=== PATIENT | female | born 1960 | race Two or more races ===

== ENCOUNTER 2017-12-02 01:06 | Emergency (ER) | payer OTHER ==
[~2017-12-02] VITALS: Ht 162.6 cm; Wt 59.0 kg
== END 2017-12-02 12:49 | disposition home or self-care (01) ==
LOC: ER → CPU-OBS 02:31 → ER 02:31
DX: R07.89 Other chest pain (principal); R00.2 Palpitations; F06.4 Anxiety disorder due to known physiological condition; F12.980 Cannabis use, unspecified with anxiety disorder; T40.7X5A Adverse effect of cannabis (derivatives), initial encounter; Y92.89 Other specified places as the place of occurrence of the external cause
CPT/HCPCS: 93005; G0378; G0379

== ENCOUNTER 2022-10-28 06:30 | Day surgery (SDC) | payer OTHER | END 2022-10-28 11:45 | disposition home or self-care (01) | LOC: AMB-ENDOS 06:30 → CIR.AMB 14:00 | PROVIDERS: ATTEND Colon & Rectal Surgery | DX: D12.2 Benign neoplasm of ascending colon (principal); K64.8 Other hemorrhoids; Z20.822 Contact with and (suspected) exposure to COVID-19 ==

== ENCOUNTER 2023-11-06 12:01 | Emergency (ER) | payer OTHER ==
[~2023-11-06] VITALS: Ht 165.1 cm; Wt 58.1 kg
== END 2023-11-06 16:45 | disposition home or self-care (01) ==
LOC: ER 12:01
DX: H92.01 Otalgia, right ear (principal)